=== PATIENT | female | born 1975 | race Caucasian/White ===

== ENCOUNTER 2020-02-14 23:24 | Inpatient (IN) | payer OTHER ==
[~2020-02-14] VITALS: Ht 172.7 cm; Wt 81.6 kg
[~2020-02-14 23:24] MED LIST: AMOXICILLIN 50500 M1 PO; CITRATE OF MAG296 ML PO; DULCOLAX5 MG PO; ESTRACE1 MG PO; GERD MED; LINZESS145 MCG PO; PANTOPRAZOLE SO40 M1 PO; ZOFRAN4 MG PO
[2020-02-14 23:25] VITALS: BP 143/98
[2020-02-15] MEDS ORDERED: MEDROLDOSEPACK PO (00:09)
[2020-02-15] MEDS ORDERED: ACETAMINOPHEN-1 EAC2 PO (00:09)
[2020-02-15] MEDS ORDERED: PROAIR HFA8.5 GM INH (00:09)
[2020-02-15 00:42] LABS: BE -0.2 mmol/L (-2 to +3); PCO2 34.6 mmHg (35.0-45.0); pH 7.446 (7.340-7.450)
[2020-02-15 00:49] LABS: ABSOLUTE LYMPHOCYTES 0.9 thou/uL (0.8-5.3); ABSOLUTE MONOCYTES 0.4 thou/uL (0.0-1.2); ABSOLUTE NEUTROPHILS 3.4 thou/uL (1.6-8.1); BASOPHILS 0.2 %; HEMATOCRIT 39.4 % (37.0-47.0); HEMOGLOBIN 14.2 gm/dL (12.0-15.0); MCH 30.8 pg (26.0-34.0); MCV 85.5 fL (80.0-100.0); MPV 9.2 fl. (7.2-11.1); NUCLEATED RBCS 0 /100WBC; PLATELET COUNT* 182 thou/uL (150-400); POLYS 71.8 %; RDW-CV 12.4 % (10.5-14.5); WBC 4.7 thou/uL (4.0-11.0)
[2020-02-15 00:52] LABS: CALCIUM 7.8 mg/dL (8.5-10.1); CREATININE 0.8 mg/dL (0.6-1.3); POTASSIUM 3.5 mmol/L (3.5-5.1)
[2020-02-15 01:02] LABS: ALBUMIN 3.4 g/dL (3.4-5.0); MAGNESIUM 1.8 mg/dL (1.8-2.4); TOTAL BILIRUBIN 0.3 mg/dL (<0.1-1.0); TOTAL PROTEIN 7.6 g/dL (6.4-8.2)
[2020-02-15 02:36] LABS: URINE BILIRUBIN NEGATIVE (Negative); URINE BLOOD NEGATIVE (Negative); URINE CLARITY CLEAR; URINE COLOR YELLOW; URINE GLUCOSE-RANDOM NEGATIVE (Negative); URINE KETONES TRACE (Negative); URINE LEUKOCYTES-REFLEX NEGATIVE (Negative); URINE NITRITE-REFLEX NEGATIVE (Negative); URINE PROTEIN NEGATIVE (Negative); URINE SPECIFIC GRAVITY <= 1.005 (1.005-1.030); URINE UROBILINOGEN 0.2 E.U./dl (0.2-1.0)
[2020-02-15 03:04] LABS: BE -2.4 mmol/L (-2 to +3); PCO2 34.8 mmHg (35.0-45.0); pH 7.409 (7.340-7.450)
--- NOTE | 2020-02-15 03:25 | NUR ---
PT REMOVED FROM O2 TO ALLOW A REDRAW OF ABGs. PT OFF FOR 25 MINUTES AND ORDER WAS PUT IN. OXYGEN PUT BACK ON AFTER DRAW WAS DONE.
[2020-02-15 05:10] VITALS: BP 115/75
[2020-02-15 07:50] VITALS: BP 150/100
--- NOTE | 2020-02-15 08:11 | NUR ---
PATIENT ADMITTED TO ROOM 110 FROM ER AT APPROXIMATELY 0500. PATIENT IS ALERT AND ORIENTED X 4. NO C/O SOA AT THIS TIME. VSS ON RA. PATIENT ORIENTED TO ROOM AND POLICIES. FALL EDUCATION GIVEN AND FALL AGREEMENT SIGNED. IV IN RIGHT AC. SUPERVISOR [employer] NOTIFIED OF THE NEED FOR AN IV PUMP FOR PATIENT. ASSESSMENT CHARTED. PATIENT INSTRUCTED TO USE CALL LIGHT WHEN NEEDING ASSISTANCE. HOURLY ROUNDS MADE. WILL CONTINUE WITH PLAN OF CARE AND NURSING TO MONITOR.
--- NOTE | 2020-02-15 13:13 | NUR ---
CM ASSESSMENT: CM SPOKE TO THE PT TO DISCUSS HER HOME SITUATION, DISCHARGE PLANNING NEEDS, AND TO INFORM OF THE ROLE OF CM. PT INFORMS THAT SHE IS ACTIVE, INDEPENDENT AND WORKS FULL-TIME. PT RESIDES AT HOME WITH SPOUSE AND HE IS SUPPORTIVE AND INVOLVED. PT'S 81 y/o MIL RESIDES IN THE HOME AND SHE ASSIST WITH CARES FOR HER AT TIMES. PT USES 0 DME AND HAS NO HX OF DME. PT INFORMS THAT SHE HAD BEEN TESTED FOR COVID-19 PRIOR TO ADMIT AT NEXT CARE IN [facility], AND IS CURRENTLY AWAITING THE RESULTS OF SPOUSES RESULTS. CM WILL REMAIN AVAILABLE TO ASSIST AND FOLLOW NEEDED.
[2020-02-15 16:00] VITALS: BP 135/99
--- NOTE | 2020-02-15 17:10 | NUR ---
ASSUMED CARE OF PATIENT AT APPROX 0730. ALERT AND ORIENTED X4. ASSESSMENT COMPLETED AND CHARTED. VSS ON 2 LITERS. ADDED A BUBBLER TO HER 02 TO ADDRESS COMPLAINT OF SORE THROAT, WARM TEA REQUESTED WELL. PATIENT UP AD ARI IN THE ROOM. CALL LIGHT WITHIN REACH. HOURLY ROUNDS COMPLETED. WILL CONTINUE WITH PLAN OF CARE.
[2020-02-15 20:00] VITALS: BP 143/102
--- NOTE | 2020-02-16 05:54 | NUR ---
PT A&O, SAT 95% ON 2L BY NC. BACKPAIN MANAGED WITH PERCOCET. SLEEPING/RESTING THROUGH THE NIGHT. NO OTHER CONCERNS AT THIS TIME. UP AD ARI. WILL CONTINUE TO MONITOR.
[2020-02-16 09:35] VITALS: BP 140/91
--- NOTE | 2020-02-16 15:57 | NUR ---
[facility] CALL[facility], HER NAME IS PREMA AND CAN BE REACHED AT [phone] [id number] [id number] . IF PT NEEDS ANY DME OR AFTERCARE, CONTACT [facility] AT [phone]
[2020-02-16 17:04] VITALS: BP 139/94
--- NOTE | 2020-02-16 18:45 | NUR ---
ASSUMED CARE OF PATIENT AT APPROX 0730. ALERT AND ORIENTED X4. ASSESSMENT COMPLETED AND CHARTED. VSS ON 2.5 LITERS. COMPLAINTS OF BACK PAIN ADDRESSED WITH PERCOCET. PATIENT UP AD ARI AND HAS SOME SOA ON EXERTION BUT STABALIZES WITH REST. CALL LIGHT WITHIN REACH. HOURLY ROUNDS COMPLETED. WILL CONTINUE WITH PLAN OF CARE.
[2020-02-16 20:00] VITALS: BP 135/95
[2020-02-17] VITALS: BP 127/80
[2020-02-17 04:00] VITALS: BP 123/81
--- NOTE | 2020-02-17 04:14 | NUR ---
PT A&OX4, ASSESSMENTS COMPLETED CHARTED, MEDICATIONS ADMINISTERED PER MAR. HOURLY ROUNDING FOR SAFETY. CONT ISOLATION AIRBORNE AND CONTACT. CALL LIGHT WITHIN REACH, CONT PLAN OF CARE.
[2020-02-17 08:00] VITALS: BP 115/87
[2020-02-17] MEDS ORDERED: AZITHROMYCIN 2250 MG PO (11:10)
[2020-02-17] MEDS ORDERED: HYDROXYCHLOROQ200 M1 PO (11:10)
[2020-02-17] MEDS ORDERED: VITAMINC500 PO (11:11)
[2020-02-17] MEDS ORDERED: VITAMIN D325 MCG PO (11:11)
[2020-02-17 17:13] VITALS: BP 115/87
[2020-02-17 17:20] VITALS: BP 115/87
--- NOTE | 2020-02-17 18:10 | NUR ---
DISCHARGED HOME WITH INSTRUCTIONS AND MEDICATION INFO. VSS. RESPIRATIONS EVEN AND UNLABORED ON ROOM AIR. DENIES PAIN. AMBULATING IN HALLWAYS WITH STEADY GAIT NOTED. INSTRUCTED TO RETURN TO ED IF NEEDED.
== END 2020-02-17 18:10 | disposition home or self-care (01) | DRG 177 ==
LOC: M.ERS 23:24 → M.ORTHSURG 02-15 03:13 → M.TBA-ER 02-15 03:13 → M.ORTHSURG 02-15 04:58
PROVIDERS: Personal Emergency Response Attendant; ADMIT Family Medicine
DX: U07.1 COVID-19 (principal); J12.89 Other viral pneumonia; J96.01 Acute respiratory failure with hypoxia; E86.0 Dehydration; J45.50 Severe persistent asthma, uncomplicated; M47.9 Spondylosis, unspecified; M54.9 Dorsalgia, unspecified; Z90.710 Acquired absence of both cervix and uterus; Z79.899 Other long term (current) drug therapy